=== PATIENT | female | born 1960 | race Caucasian/White ===

== ENCOUNTER 2020-05-30 19:15 | Emergency (ER) | payer OTHER, SELFPAY ==
[~2020-05-30] VITALS: Ht 157.5 cm; Wt 81.6 kg
[2020-05-30 19:20] VITALS: BP_SYST 101
--- NOTE | 2020-05-30 19:20 | NUR ---
Patient triaged and placed in waiting room. VSS and patient appears in no acute distress at this time. Accompanied by AMB transport, awaiting available bed, and MD notified of need for MSE.
--- NOTE | 2020-05-30 20:59 | NUR ---
Patient to ER bed 6 to gown for evaluation. Side rails up. Report given to Emilie BENNETT.
[2020-05-30 21:03] LABS: ANION GAP 7 (5-15); CALCIUM 8.4 mg/dL (8.4-11.0); CHLORIDE 108 mmol/L (98-107); CREATININE 0.52 mg/dL (0.55-1.30); GLUCOSE 85 mg/dL (70-99); POTASSIUM 3.9 mmol/L (3.5-5.1); SODIUM SERUM 142 mmol/L (136-145); UREA NITROGEN, BLOOD 11 mg/dL (8-21)
[2020-05-30 21:08] LABS: ACETAMINOPHEN 1 ug/mL (1-30); ALANINE AMINOTRANSFERASE 48 U/L (12-78); ALBUMIN 2.9 g/dL (3.4-4.8); ASPARTATE AMINOTRANSFERASE 48 U/L (10-37); TOTAL BILIRUBIN 1.7 mg/dL (0.0-1.0)
[2020-05-30 21:14] LABS: ALCOHOL, BLOOD < 3 mg/dL (<10); GFR AFRICAN AMERICAN 156 mL/min (>90)
[2020-05-30 21:28] LABS: HEMOGLOBIN 13.5 g/dL (12.0-16.0); MEAN CORPUSCULAR HEMOGLOBIN 34 pg (27-31); MEAN CORPUSCULAR VOLUME 101 fL (79.0-98.0); RED BLOOD CELL COUNT(AUTO) 3.98 MIL/uL (4.2-6.2); WHITE BLOOD COUNT (AUTO) 3.1 K/uL (4.8-10.8)
[2020-05-30 21:29] LABS: MEAN CORPUSCULAR HGB CONC 34 % (32-36); PLATELET COUNT (AUTO) 72 K/uL (130-430); RED CELL DISTRIBUTION WIDTH 14.5 % (9.0-15.0)
--- NOTE | 2020-05-30 21:38 | NUR ---
PT NAN FROM [facility] FOR INCREASINGLY AGRESSICE BEHAVIOR TOWARDS STAFF AND OTHER RESIDENTS. PT HAS A HX OF HYPOTHYROIDISM, HEP C, DEMENTIA AND PSYCHOSIS. AAOX2, V/S STABLE. PT HERE FOR MEDICAL CLEARANCE FOR TX TO [facility]
[2020-05-30 21:41] LABS: BASOPHILS % (AUTO) 0.9 % (0.0-2.0); EOSINOPHILS # (AUTO) 0.1 K/uL (0.0-0.4); EOSINOPHILS % (AUTO) 4.1 % (0.0-4.0); LYMPHOCYTES # (AUTO) 1.5 K/uL (1.0-5.5); LYMPHOCYTES % (AUTO) 49.2 % (20.5-51.5); MONOCYTES # (AUTO) 0.3 K/uL (0.0-1.0); MONOCYTES % (AUTO) 9.2 % (1.7-9.3); NEUTROPHILS # (AUTO) 1.1 K/uL (1.8-7.7); NEUTROPHILS % (AUTO) 36.6 % (40.0-70.0)
--- NOTE | 2020-05-30 21:55 | NUR ---
URINE COLLECTED VIA IN/OUT CATH, PT TOLERATED WELL. SPECIMEN TAKEN TO LAB
--- NOTE | 2020-05-30 22:15 | NUR ---
Patient to be transferred to [facility]. Is being transferred due to higher level of care. Receiving facility has accepting physician and available space. ER physician has signed transfer form. Patient or responsible constitution party has agreed to transfer and signed form. Patient belongings inventoried and will be sent with patient. Copy of nursing notes, lab reports, EKG, Physicians Orders and X-rays to be sent with patient. Report called to SABRINA SANCHES at receiving facility. Receiving physician is DR. PERDOMO. Ambulance service has been called for transfer. ETA is 2220. Addendum: 05/30/20 at 2222 by [email or web address] Patient to be transferred to [facility]. Is being transferred due to higher level of care. Receiving facility has accepting physician and available space. ER physician has signed transfer form. Patient or responsible constitution party has agreed to transfer and signed form. Patient belongings inventoried and will be sent with patient. Copy of nursing notes, lab reports, EKG, Physicians Orders and X-rays to be sent with patient. Report called to SABRINA SANCHES at receiving facility. Receiving physician is DR. PERDOMO. Ambulance service has been called for transfer. ETA is 2220
[2020-05-30 22:18] LABS: BAND % (MANUAL) 3 % (0-6); BASOPHILS % (MANUAL) 0 % (0-2); EOSINOPHILS % (MANUAL) 2 % (0-7); LYMPHOCYTES % (MANUAL) 57 % (20-46); MONOCYTES % (MANUAL) 4 % (0-11)
[2020-05-30 22:19] VITALS: BP_SYST 101
== END 2020-05-30 22:15 ==
LOC: SED 19:15
DX: F29 Unspecified psychosis not due to a substance or known physiological condition (principal); Z20.828 Contact with and (suspected) exposure to other viral communicable diseases
CPT/HCPCS: 36415; 80053; 85007; 85027; 87081; 87426; 93005; 99285; G0480; G0481; G0482